=== PATIENT | female | born 1980 | race Caucasian/White ===

== ENCOUNTER 2024-07-26 09:30 | Outpatient (CLI) | payer BC, SELFPAY | END 2024-07-26 09:31 | disposition home or self-care (01) | PROVIDERS: Visit Provider Obstetrics & Gynecology | DX: N95.1 Menopausal and female climacteric states (principal); R63.5 Abnormal weight gain | CPT/HCPCS: 83001; 84443 ==

== ENCOUNTER 2024-12-27 10:04 | Outpatient (CLI) | payer BC, SELFPAY ==
--- NOTE | 2024-12-27 10:15 | CRLHL7_ITS ---
For Patients: As a result of the Century Cures Act, medical imaging exams and procedure reports are released immediately into your electronic medical record. You may view this report before your referring provider. If you have questions, please contact your health care provider. INDICATION: BILATERAL SCREENING MAMMOGRAM, ASYMPTOMATIC 44 Y/O FEMALE COMPARISON: Baseline TECHNIQUE: CC and MLO views were obtained. These mammographic images have been obtained using full-field digital technique. These mammographic images were interpreted with the benefit of computer aided detection and tomosynthesis. BREAST COMPOSITION: The breasts are heterogeneously dense, which may obscure small masses. FINDINGS: No suspicious findings. ASSESSMENT: BI-RADS 1 Negative RECOMMENDATION: Annual screening mammogram. A lay language report of this examination will be provided to the patient. Dictated by: Liam Griffin MD @ 01/02/2025 13:13:39 (Electronically Signed)
== END 2024-12-27 10:05 | disposition home or self-care (01) ==
LOC: MAMMO 10:05
PROVIDERS: Visit Provider Obstetrics & Gynecology
DX: Z12.31 Encounter for screening mammogram for malignant neoplasm of breast (principal); R92.333 Mammographic heterogeneous density, bilateral breasts
CPT/HCPCS: 77063; 77067